=== PATIENT | male | born 1965 | race Caucasian/White ===

== ENCOUNTER → 2021-12-22 | Outpatient (CLI) | payer BC ==
[~2021-12-22] MED LIST: ASPIRIN CHEWABL81 MG PO; DOCUSATE SODIU100 MG PO; EFFIENT10 MG PO; GABAPENTIN300 MG PO; ISOSORBIDE MONO60 MG PO; LASIX20 MG PO; LIPITOR80 MG PO; METOPROLOL SUCC50 MG PO; NORVASC10 MG PO; OMEPRAZOLE40 MG PO; POTASSIUM CHLO10 ME1 PO; ROXICODONE5 MG PO; ZESTRIL20 MG PO
[2021-12-22 09:23] LABS: RED BLOOD COUNT 4.85 M/UL (4.20-5.50); WHITE BLOOD COUNT 9.7 K/UL (4.5-11.0)
[2021-12-22 09:42] LABS: BUN/CREATININE RATIO 11 (0-10)
== END ==
LOC: OPSV2 08:00
PROVIDERS: Orthopaedic Surgery
DX: Z01.818 Encounter for other preprocedural examination (principal)
CPT/HCPCS: 80053; 85025; 85610; 85730; 93005

== ENCOUNTER 2021-12-23 07:47 | Day surgery (SDC) | payer BC ==
[~2021-12-23] VITALS: Ht 182.9 cm; Wt 126.1 kg
[~2021-12-23 07:47] MED LIST changes: -DOCUSATE SODIU100 MG PO; -GABAPENTIN300 MG PO
[2021-12-24 02:43] LABS: HEMOGLOBIN 13.8 gm/dl (14.0-17.5); RED BLOOD COUNT 4.53 M/UL (4.20-5.50); WHITE BLOOD COUNT 11.8 K/UL (4.5-11.0)
[2021-12-24 03:06] LABS: BUN/CREATININE RATIO 15 (0-10)
[2021-12-24] MEDS ORDERED: GABAPENTIN300 MG PO (17:56)
[2021-12-24] MEDS ORDERED: DOCUSATE SODIU100 MG PO (17:56)
== END 2021-12-24 19:45 | disposition home or self-care (01) ==
LOC: OR 07:47 → CCU 16:58 → OR 12-24 19:45
PROVIDERS: Orthopaedic Surgery
DX: S82.142A Displaced bicondylar fracture of left tibia, initial encounter for closed fracture (principal); W19.XXXA Unspecified fall, initial encounter; I11.0 Hypertensive heart disease with heart failure; I50.9 Heart failure, unspecified; E78.5 Hyperlipidemia, unspecified; I25.10 Atherosclerotic heart disease of native coronary artery without angina pectoris; K21.9 Gastro-esophageal reflux disease without esophagitis; Z95.5 Presence of coronary angioplasty implant and graft; Z87.891 Personal history of nicotine dependence; Z79.82 Long term (current) use of aspirin; Z79.899 Other long term (current) drug therapy; Z91.040 Latex allergy status
CPT/HCPCS: 36415; 73590; 76000; 80048; 85027; 97116; 97161; C1713; J0690; J1100; J1650; J2250; J2405; J2704; J3010